=== PATIENT | male | born 1980 | race Caucasian/White ===

== ENCOUNTER 2016-12-30 09:40 | Emergency (ER) | payer SELFPAY ==
[2016-12-30] MEDS ORDERED: NORMAL SALINE 10 ML SYRINGE FLUSH IVP PRN (09:56)
--- NOTE | 2016-12-30 09:59 | EKG ---
[address] [address] Measurements Intervals [place] Rate: 72 P: 53 W[place]: 165 QRS: 57 QRSD: 92 T: 12 QT: 392 QTc: 417 Interpretive Statements SINUS RHYTHM INTERPRETATION BASED ON A DEFAULT AGE OF 40 YEARS No previous ECG available for comparison and no acute ST-T changes to suggest injury pattern Electronically Signed On 12-31-16 08:25:10 MDT by Calos Nicholson MD [email or web address]
[2016-12-30 10:03] VITALS: RESP 17; TEMP 96.8
[2016-12-30] MEDS: ASPIRIN 81 MG (BABY) CHEWABLE TABLET PO ONE ×2 (10:04→10:06)
[2016-12-30] MEDS ORDERED: Sodium Chloride 0.9% 1,000 ML PRIMARY IV ONE (10:06)
[2016-12-30 10:10] LABS: BLOOD UREA NITROGEN 18 mg/dL (7-22); CALCIUM 9.9 mg/dL (8.7-10.7); EST GLOMERULAR FILTRATION > 60 (>60 ml/min/1.73m(2)); SERUM ALBUMIN 4.6 g/dL (3.5-4.8)
[2016-12-30 10:12] LABS: BASOPHILS # (AUTO) 0.03 10*3/UL; BASOPHILS % (AUTO) 0.3 % (0-1); EOSINOPHILS # (AUTO) 0 10*3/UL; EOSINOPHILS % (AUTO) 0 % (0-8); HEMOGLOBIN 15.1 g/dL (14.0-18.0); LYMPHOCYTES # (AUTO) 1.52 10*3/uL; MEAN CORPUSCULAR HEMOGLOBIN 31.1 PG (27-31); MEAN CORPUSCULAR VOLUME 86.6 FL (80-90); MEAN PLATELET VOLUME 9.3 FL (7.4-12.2); MONOCYTES # (AUTO) 0.37 10*3/UL (0.3-0.8); MONOCYTES % (AUTO) 3.9 % (5-15); NEUTROPHILS % (AUTO) 79.7 % (50-80); RED BLOOD COUNT 4.85 10^6/uL (4.70-6.10)
[2016-12-30 10:14] LABS: PLATELET MORPHOLOGY COMMENT NORMAL MORPHOLOGY (NORM); RBC MORPHOLOGY COMMENT NORMAL MORPHOLOGY (NORM); WBC MORPHOLOGY COMMENT NORMAL MORPHOLOGY (NORM)
[2016-12-30 10:26] LABS: TROPONIN I < 0.012 ng/mL (< 0.040)
--- NOTE | 2016-12-30 10:30 | DI ---
HISTORY: Chest pain. COMPARISON: None available. FINDINGS: The heart is within normal limits. The lung spears are essentially clear. IMPRESSION: 1. No acute cardiopulmonary abnormality.
[2016-12-30] MEDS ORDERED: LORazepam 1 MG TABLET PO ONE (10:36)
--- NOTE | 2016-12-31 06:50 | PDOC ---
Chest Pain [facility] - General Chief Complaint: Chest Pain Stated Complaint: CHEST PAIN Date Seen by Provider: 12/30/16 Time Seen by Provider: 09:45 Source: Patient Exam Limitations: POSITIVE: No limitations Treatment Prior to Arrival: REPORTS: None Nurse's Notes Reviewed & Considered: Yes - History of Present Illness Initial Comments: The patient is a 36-year-old male. He states that for the past 4 weeks he has had mild transient episodes of discomfort to his chest. He states he rates the intensity of this discomfort as a "2 on a scale of 10". He states he's also had associated "dizziness, shakiness and anxiety". He states that his episodes of chest discomfort normally occur during periods of anxiety. He was evaluated for his chest discomfort symptoms in [place] recently and he states "they didn't find anything". Patient does not smoke. He does chew about 1 can of chewing tobacco every 2 weeks. He is presently on no medications. He is under situational stresses due to work and financial issues. His discomfort is located primarily in the eben-medial aspect of the left thorax. Body Location Affected: REPORTS: Chest Timing: REPORTS: Intermittent Duration: >1 week (4 weeks) Severity: Mild Gone now, lasted (minutes):: 10 Intermittent Episodes Lasting (minutes): 10 Context: REPORTS: Emotional Upset Quality: REPORTS: "Pain", Sharpness Radiation: REPORTS: None Associated Symptoms: REPORTS: Dizziness, Other ("Shakiness") Modifying Factors: worse with: None Reported, Movement, Position Change, Pressing On Area, Sitting up, Rest, Antacids, Nitroglycerin, Oxygen, Aspirin, Deep breathing, Exertion, Other Similar Symptoms Previously: Yes (as above) Recently seen/treated/hospitalized: Yes (as above) Any Prior Injuries Related to Current Complaint?: No - Patient Home Medications Home Medications: Home Medications Omeprazole Magnesium [Prilosec Otc] 20 mg PO DAILY tab 07/12/14 Acyclovir 1 tab PO QD #30 tab 03/26/16 Aspirin 325 mg PO PRN PRN 12/30/16 LORazepam Tab [Ativan Tab] 1 mg PO Q8H PRN #20 tablet 12/30/16 - Patient Allergies Allergies/Adverse Reactions: Allergies Allergy/AdvReac Type Severity Reaction Status Date / Time No Known Allergies Allergy Verified 12/30/16 09:48 Past Medical History - heen HEENT History: Other (please comment) Additional HEENT History: COLD SORES (TREATED WITH ACYCLOVIR) Cardiovascular History: Denies History Respiratory History: Denies History Gastrointestinal History: GERD Genitourinary History: Denies History Endocrine History: Denies History Musculoskeletal History: Denies History Prosthesis or Implant: No Neurological History: Denies History Blood Disorders: Denies History Psychiatric History: Denies History History of Sexually Transmitted Diseases: No Male Reproductive History: Denies History Cancer History: Denies History In Past Year Been Physically Harmed or Verbally Threatened: No (PER PATIENT) History of MDRO: No History of Other Communicable Diseases: No Tobacco Use: Never Smoker Alcohol Use: Occasionally Substance Use Type: None Previous Surgical History: No Significant Family History: No pertinent family hx Past Medical History Reviewed: Reviewed - No Changes ROS - Limitations ROS Limitations: No Limitations Constitution: REPORTS: Denies Symptoms Cardiovascular: REPORTS: Chest Pain Respiratory: REPORTS: Denies Resp Symptoms Neurological: REPORTS: Dizziness Gastrointestinal: REPORTS: Denies GI Symptoms Endocrine: REPORTS: Denies Symptoms Musculoskeletal: REPORTS: Denies MS Symptoms Genitourinary: REPORTS: Denies Symptoms Eyes: REPORTS: Denies Symptoms ENT: REPORTS: Denies Symptoms Skin: REPORTS: Denies Skin Symptoms Lympathic: REPORTS: Denies Lympathic Symptoms Immunologic: POSITIVE: Denies Symptoms Psychiatric: POSITIVE: Anxiety Chest Pain PE - General Appearance General Appearance: REPORTS: Alert, Cooperative, No Acute Distress, No Evidence of Trauma - HEENT HEENT: POSITIVE: Head Inspection Nml, Eyes Inspection Nml, Ears Inspection Nml, Nose Inspection Nml, Oral/Dental Inspect. Nml, Pharynx Inspect. Nml, PERRL, EOMI - Neck Neck: REPORTS: Normal Inspection, No Carotid Bruit - Respiratory Respiratory: REPORTS: No Respiratory Distress, Breath Sounds Normal, Chest Non- Tender - Cardiovascular Cardiovascular: REPORTS: Regular Rate and Rhythm, Heart Sounds Normal, Equal Pulses, Strong Pulses, No Murmur, No Gallop, No Friction Rub, No JVD Peripheral Pulses: Radial (R): 2+, Radial (L): 2+ - Abdomen Abdomen: Soft: (All Quadrants), Normal Bowel Sounds: (All Quadrants), Denies Tenderness: (All Quadrants), No Splenomegaly: (All Quadrants), No Hepatomegaly: (All Quadrants), No Guarding: (All Quadrants), No Rebound: (All Quadrants), No Palpable Pulse: (All Quadrants), No Palpabale Mass: (All Quadrants), No Distention: (All Quadrants), No Rigidity: (All Quadrants) - Skin Skin: REPORTS: Intact, Normal For Race, Warm, Dry, No Rash - Extremities Extremity: Non-Tender: (All Extremities), Normal ROM: (All Extremities), Normal Inspection: (All Extremities) - Neurological / Psychological Neurological: POSITIVE: Oriented X3, 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, Motor Normal, Sensation Normal, 5, 6 Images - Complete Complete: 1 - Area of discomfort Chest Pain Progress - Results Reviewed by me Xrays/CTs/US Reviewed by me: Yes Discussed with Radiologist: No Radiology Findings: Portable chest x-ray normal Lab Results Reviewed: Yes (all normal, including troponin and d-dimer.) Lab Results:: Laboratory Results 12/30/16 Range/Units 10:01 WBC 9.54 (4.8-10.8) 10^3/uL RBC 4.85 (4.70-6.10) 10^6/uL Hgb 15.1 (14.0-18.0) g/dL Hct 42.0 (42.0-52.0) % MCV 86.6 (80-90) FL MCH 31.1 H (27-31) PG MCHC 36.0 (33-37) g/dL RDW Std Deviation 40.9 (39-50) fL RDW Coeff of Suzan 13.1 (11.5-14.5) % Plt Count 256 (140-350) 10*3/uL MPV 9.3 (7.4-12.2) FL Immature Gran % (Auto) 0.2 (0-5) % Neut % (Auto) 79.7 (50-80) % Lymph % (Auto) 15.9 (10-50) % Bates % (Auto) 3.9 L (5-15) % Eos % (Auto) 0 (0-8) % Baso % (Auto) 0.3 (0-1) % Immature Gran # (Auto) 0.02 10*3/UL Neut # (Auto) 7.60 10*3/UL Lymph # (Auto) 1.52 10*3/uL Bates # (Auto) 0.37 (0.3-0.8) 10*3/UL Eos # (Auto) 0 10*3/UL Baso # (Auto) 0.03 10*3/UL WBC Morphology Comment Normal morphology (NORM) Plt Morphology Comment Normal morphology (NORM) RBC Morph Comment Normal morphology (NORM) D-Dimer < 0.19 (0.00-0.59) mg/L Sodium 140 (135-145) meq/L Potassium 4.2 (3.8-5.2) meq/L Chloride 103 (98-112) meq/L Carbon Dioxide 23 (23-33) meq/L Anion Gap 14 (5-20) BUN 18 (7-22) mg/dL Creatinine 0.9 (0.70-1.50) mg/dL Estimated GFR > 60 (>60 ml/min/1.73m(2)) BUN/Creatinine Ratio 20.00 (6-20) Glucose 107 (78-110) mg/dL Calculated Osmolality 291.0 (267-292) mOsm/kg Calcium 9.9 (8.7-10.7) mg/dL Total Bilirubin 0.6 (0.3-1.2) mg/dL AST 38 (21-57) IU/L ALT 35 (21-72) IU/L Alkaline Phosphatase 61 (38-126) IU/L CK-MB (CK-2) 3.00 (0.00-5.00) NG/ML Troponin I < 0.012 (< 0.040) ng/mL Total Protein 7.8 (6.1-8.0) g/dL Albumin 4.6 (3.5-4.8) g/dL Globulin 3.2 (2.50-4.10) g/dL Albumin/Globulin Ratio 1.40 (1.3-2.0) mg/g EKG Interpreted/Reviewed By Me:: Yes EKG Interpretation:: POSITIVE: Normal Sinus Rhythm, Normal Rate, Normal Intervals, Normal [place], Normal QRS, Normal ST/T - Patient's Progress Pain Medication Addressed: POSITIVE: Yes (Recommended a trial of Advil or Tylenol) School/Work Release Addressed: POSITIVE: Yes (May return to work.) Re-Examine Time: 11:20 Re-Examine Comment: Patient rested comfortably throughout his stay in the emergency room Status: POSITIVE: Unchanged, Re-Examined Quality Measure Initiative: CP/AMI: POSITIVE: EKG, ASA - Consult Counseled: POSITIVE: Patient, RE: Lab Results, RE: Radiology Results, RE: DX, RE : Need for F/U Patient Care Time - Estimated PCT Patient Care Time (In Minutes): 35 Vital Signs - VS Reviewed Vital Signs Reviewed: Yes Discharge Clinical Impression: Atypical chest pain, Anxiety Discharge Disposition: Discharged to Home Condition: Fair Prescriptions / Orders: LORazepam Tab [Ativan Tab] 1 mg PO Q8H PRN #20 tablet PRN Reason: Anxiety Patient Instructions Given at Discharge: Chest Pain (ED), Anxiety (ED) Additional Instructions: Your electrocardiogram, blood tests and chest x-ray are all normal. I see no evidence of heart attacks, blood clots in the lung, or any other serious pathology ongoing. Since you've been having intermittent episodes of chest discomfort associated with dizziness for 4 weeks, I recommend that you follow- up with your primary care provider and have a cardiac stress test. I think that it is very likely, however, that your symptoms are strongly related to anxiety. Therefore, I prescribed you Ativan, 1 mg every 8 hours, as necessary for anxiety. Please avoid alcohol while taking this medication. Return here anytime if condition worsens, or if we can be of further service in any way. Follow Up With: LUIS TAO [Primary Care Provider] - (Instructions as above. Follow-up with your primary care provider. Return here as necessary)
== END 2016-12-30 12:13 | disposition home or self-care (01) ==
LOC: ER 09:40
DX: R07.89 Other chest pain (principal); F41.9 Anxiety disorder, unspecified; R42 Dizziness and giddiness
CPT/HCPCS: 71010; 80053; 82553; 84484; 85025; 85379; 93005; 93010; 99284

== ENCOUNTER → 2017-01-07 | Outpatient (CLI) | payer OTHER ==
[2017-01-07 13:05] LABS: VITAMIN D 25-HYDROXY 36.6 NG/ML (30-100)
== END ==
LOC: MOB LAB 11:31
PROVIDERS: ATTEND Nurse Practitioner Family
DX: R53.83 Other fatigue (principal); K21.9 Gastro-esophageal reflux disease without esophagitis; F41.9 Anxiety disorder, unspecified
CPT/HCPCS: 36415; 82306; 82607; 84443